=== PATIENT | female | born 1995 | race Caucasian/White ===

== ENCOUNTER → 2016-08-13 | Outpatient (CLI) | payer OTHER ==
[~2016-08-13] MED LIST: ALBUAER19 INH; CHOL100027 PO; FERR325T51 PO; LACT3000 PO; MISCCAP77 PO; MULT-513 PO; NORGTAB36 PO
== END | disposition home or self-care (01) ==
LOC: C.LAB 11:05
PROVIDERS: ATTEND Nutritionist
DX: R53.83 Other fatigue (principal)